=== PATIENT | female | born 1955 | race Caucasian/White ===

== ENCOUNTER 2016-07-27 18:05 | Emergency (ER) | payer OTHER, SELFPAY ==
[~2016-07-27] VITALS: Ht 167.6 cm; Wt 124.7 kg
[~2016-07-27 18:05] MED LIST: AMLODIPINE BESYL5 MG PO; ESTRACE1 MG PO; LEVAQUIN750 MG PO; LIPITOR40 MG PO; PROZAC40 MG PO; SYNTHROID25 MCG PO; WELLBUTRIN XL150 MG PO
[2016-07-27] MEDS ORDERED: CENTRUM COMPLE1 EACH PO (18:36)
[2016-07-27] MEDS ORDERED: FISH OIL1 GM PO (18:36)
[2016-07-27] MEDS ORDERED: FLONASE16 GM NAS (18:36)
[2016-07-27] MEDS ORDERED: TRIAMCINOLONE A15 G2 TOP (18:38)
== END 2016-07-27 18:55 | disposition short-term general hospital (02) ==
LOC: ER 18:05
DX: M25.561 Pain in right knee (principal); M79.89 Other specified soft tissue disorders